=== PATIENT | female | born 1945 ===

== ENCOUNTER 2018-11-14 01:39 | Observation (INO) | payer MEDICARE, MEDICAID ==
[~2018-11-14] VITALS: Ht 154.9 cm; Wt 79.4 kg
[2018-11-14] VITALS (13 sets, daily range): BP systolic 114–143; BP diastolic 54–116
[~2018-11-14 01:39] MED LIST: CLOP75TA PO; GABA-549 PO; LEVO75TA73 PO; LISI5TAB25 PO; LOSA25TA57 PO; METF-450 PO; SIMV-49 PO; TRAM-420 PO
[2018-11-14] MEDS: NORMOSOL R SOLN(*) 1000 ML BAG 1,000 ML IV PRN ×2 (10:59→14:06)
[2018-11-14] MEDS ORDERED: BACITRACIN 50000 UNIT/VIAL 50,000 UNIT in NS 0.9% IRRIG(*) 1000ML PLCT 1,000 ML IR PRN (11:55)
[2018-11-14] MEDS ORDERED: ACETAMINOPHEN 500 MG TAB PO ONE (11:55)
[2018-11-14] MEDS ORDERED: FAMOTIDINE 20 MG TAB PO ONE (11:55)
[2018-11-14] MEDS ORDERED: LIDOCAINE/SOD BICARB 8.4% SYR ID ONE (11:55)
[2018-11-14] MEDS ORDERED: MIDAZOLAM 2 MG/2 ML VIAL IVP PRN (11:55)
[2018-11-14] MEDS ORDERED: ceFAZolin(*) 2GM/D5W 50ML 50 ML IVPB ONE (11:55)
[2018-11-14] MEDS ORDERED: BUPIVACAIN 0.25% INJ 50ML VIAL ONE (12:11)
[2018-11-14] MEDS ORDERED: DEXAMETHASONE SOD PHOS 10MG/ML ONE (12:11)
[2018-11-14] MEDS ORDERED: ROCURONIUM BROM 10 MG/ML 10 ML ONE (12:38)
[2018-11-14] MEDS ORDERED: PROPOFOL EMUL(*) 10MG/ML 20 ML 20 ML ONE (12:38)
[2018-11-14] MEDS ORDERED: fentaNYL CITR 100 MCG/2 ML AMP ONE ×3 (12:38→14:23)
[2018-11-14] MEDS ORDERED: ONDANSETRON 4 MG/2 ML VIAL ONE (12:38)
[2018-11-14] MEDS ORDERED: ROPIVACAINE 0.2% 20 ML VIAL ONE (13:34)
[2018-11-14] MEDS ORDERED: SUGAMMADEX SOD 500 MG/5 ML SDV ONE (13:40)
[2018-11-14] MEDS ORDERED: KETOROLAC 30 MG/ML VIAL ONE (14:15)
--- NOTE | 2018-11-14 14:26 | OPERATIVE REPORT 1 ---
EVENT DATE: November 14, 2018 SURGEON: Giovanni Rivers MD ANESTHESIOLOGIST: Kevin Sebastian MD ANESTHESIA: General endotracheal. MATCH MAKER: Kevin Hill PA-C PREOPERATIVE DIAGNOSIS Left L5 radiculopathy with left-sided L4, L5 herniated nucleus pulposus. POSTOPERATIVE DIAGNOSIS Left L5 radiculopathy with left-sided L4, L5 herniated nucleus pulposus. PROCEDURE PERFORMED Left L4, L5 laminoforaminotomy and micro discectomy. IV FLUIDS 800 cc. ESTIMATED BLOOD LOSS 60 cc. DRAINS None. SPECIMENS None IMPLANTS USED None. COMPLICATIONS None. DISPOSITION Post-anesthesia care unit. INDICATIONS FOR SURGERY Ms. Foy is a 73-year-old female who presented with radicular pain in an L5 distribution down the left leg. The symptoms did not improve with physical therapy, Medrol dose pack and injections. She had about one month of improvement with the injections, but symptoms then returned. Her physical examination was significant for a positive straight leg raising maneuver on the left, recreating symptoms in and L5 distribution. Muscle strength was decreased and tibialis anterior extensor hallucis longus and peroneals on that left side. X-rays and an MRI showed multilevel degenerative disc disease and at L4, L5 there was a superiorly extruded disc herniation coming from the L4, L5 level. Secondary to ongoing symptoms and failure of nonsurgical care, Ms. Foy was offered and elected to undergo L4, L5 laminoforaminotomy and discectomy. Prior to surgery, I explained in detail to the patient possible risks of surgery. These risks include bleeding, infection, damage to surrounding structures, nerve root injury, spinal fluid leak, persistent and/or worsening pain, need for further surgery, , blindness, sexual dysfunction, autonomic nervous system dysfunction, and other unforeseen medical and surgical complications. An understanding that in general, spinal surgery is more predictive at improving extremity discomfort than axial spine pain was stressed. DESCRIPTION OF PROCEDURE On the day of surgery, the patient was met in the preoperative hold area and all questions were answered. The operative site was identified and marked by myself. The patient was brought in good condition to the operating room and after succumbing to anesthesia, was positioned in the prone position on a Hernan table. All bony protuberances and soft tissues were well-padded in the standard fashion. Care was taken to maintain appropriate perfusion pressures during anesthesia. Preoperative antibiotics were administered according to the appropriate timing schedule. At the conclusion of the procedure, sponge and needle counts were correct x2. A final timeout was undertaken by members of the operating team to confirm correct patient, correct levels, and correct surgery. Prior to incision, a spinal needle was placed on the L4 spinous process and a lateral radiograph obtained to confirm its position. We then went ahead with a vertical incision about 1 inch long and dissected down to the posterior elements. The lumbodorsal fascia was incised on the left of the spinous processes and soft tissues were elevated off the posterior elements in a subperiosteal manner. We then placed a retractor at what we believed to be the L4, L5 inner space and obtained another x-ray that showed we were actually at L5, S1. We therefore shifted up one disc space, replaced our self-retaining retractor. A Hudson curette was used to undermine the inferior insertion of the ligamentum flavum from the superior aspect of the L5 lamina. This was carried out along the medial border of the facet as well. Once I entered the canal, I used a Shawn elevator to separate any dural adhesions from surrounding bone or soft tissue prior to use of the Kerrison punch. A #3 Kerrison rongeur was used to undercut the L4, L5 facet and also to widen out the laminoforaminotomy just a bit. We then looked more superiorly and identified the disc space itself. A D'Errico nerve root retractor was used to retractor the dura and the shoulder of the L5 nerve root away from the disc space. A 15-blade was used to incise the disc space and some small disc fragments were removed. I then explored the canal, sweeping and searching for any extruded or persistent disc fragments, or any persistent compression of the neural elements, and none was found. At that point, we elected to go ahead and finish up as there was no evidence of any further disc material in the canal, so we irrigated with copious sterile saline solution, obtained meticulous hemostasis and then closed the wound in layers using interrupted sutures for the deep fascia, inverted interrupted sutures for the subcutaneous tissue and a running subcuticular skin stitch. Sponge and needle counts were correct x2. Prior to closure, we did place 2 mg of Decadron around the L5 nerve root. POSTOPERATIVE CARE PLAN The patient will remain here in the recovery area until she meets discharge criteria. She will be discharged home with instructions to follow up in 2 weeks time for a wound check and examination. CLARENCE
[2018-11-14] MEDS ORDERED: LOR5/325 PO (15:03)
[2018-11-14] MEDS ORDERED: DIA5 PO (15:04)
[2018-11-14] MEDS ORDERED: DOCU240C84 PO (15:05)
[2018-11-14] MEDS ORDERED: APAP/HYDROCODONE 325/5 TAB ONE (15:07)
--- NOTE | 2018-11-14 15:24 | RADIOLOGY IMAGING REPORT ---
FAC[place] [facility] [place]IENT NAME: Rachel Foy : 1945 MR: [id number] V: [id number] EXAM DATE: ORDERING PHYSICIAN: ALEXIA KERN TECHNOLOGIST: Location: [facility] - [place] Patient: Rachel Foy : 1945 Visit/Account:[id number] Date of Sevice: 11/14/2018 Lumbar spine Indication: L4-5 laminoforaminotomy Comparison: None available FINDINGS: 2 views of the lumbar spine were obtained. 2 lateral views of the lumbar spine demonstrating surgical hardware posterior to the L4-L5 vertebral bodies. Mild/moderate degenerative space loss at L4-L5. Mild additional multilevel joint space loss. Mild/moderate atherosclerosis within the abdominal aorta. IMPRESSION: 1. Surgical hardware posterior to L4-L5. Report Dictated By: Lasha Gonzalez MD at 11/14/2018 3:16 PM Report E-Signed By: Lasha Gonzalez MD at 11/14/2018 3:18 PM WSN:[id number]
[2018-11-14] MEDS ORDERED: MORPHINE 2 MG/ML SYR IVP PRN (16:10)
[2018-11-14] MEDS ORDERED: ONDANSETRON 4 MG/2 ML VIAL IVP PRN (16:10)
[2018-11-14] MEDS: APAP/HYDROCODONE 325/5 TAB PO PRN (21:26)
--- NOTE | 2018-11-14 22:01 | Hospitalist Consultation ---
History of Present Illness Requesting Physician Dr Plascencia Reason for Consult management of medical comorbidities. Chief Complaint radiculopathy History of Present Illness 73F with radiculopathy admitted after laminectomy. PMHx significant for hypothyroidism, HTN, chronic pain. Underwent L4-5 laminectomy and microdiscectomy. No reported complications. Admitted for observation as previous experience with general anesthesia was prolonged hypoxia. History Problems: (1) Hypothyroid (2) HTN (hypertension) (3) S/P laminectomy Home Meds Reported Medications Docusate Calcium (SURFAK) 240 Mg Capsule, 240 MG PO QDAY for 9 Days, #9 CAPSULE 0 Refills 11/14/18 Diazepam (VALIUM) 5 Mg Tablet, 5 MG PO Q8H PRN for SPASMS, #16 TAB 0 Refills 11/14/18 Hydrocodone Bit/Acetaminophen (HYDROCODON-ACETAMINOPHEN 5-325) 1 Each Tablet, 1- 2 EACH PO Q6H PRN for PAIN, #36 TAB 0 Refills 11/14/18 Tramadol Hcl (TRAMADOL HCL) 50 Mg Tablet, 50-100 MG PO Q6H PRN for PAIN, TAB 11/13/18 Gabapentin (GABAPENTIN) 300 Mg Capsule, 300 MG PO TID, CAPSULE 11/13/18 Levothyroxine Sodium (LEVOTHYROXINE SODIUM) 75 Mcg Tablet, 75 MCG PO QDAY, TAB 11/13/18 Clopidogrel Bisulfate (CLOPIDOGREL) 75 Mg Tablet, 1 TAB PO QDAY, TAB 11/13/18 Losartan Potassium (LOSARTAN POTASSIUM) 25 Mg Tablet, 25 MG PO QDAY 11/13/18 Lisinopril (LISINOPRIL) 5 Mg Tablet, 5 MG PO QDAY, TAB 11/13/18 Simvastatin (SIMVASTATIN) 20 Mg Tablet, 10 MG PO HS, TAB 11/13/18 Metformin Hcl (METFORMIN HCL) 500 Mg Tablet, 1 TAB PO TID, TAB 11/13/18 Allergies: Coded Allergies: No Known Drug Allergies (Unverified , 11/13/18) Patient History: FH: heart disease FATHER, MOTHER, Hx Smoking: No Smoking Status: Never Smoker Caffeine/Cups Per Day: NONE Hx Alcohol Use: No Hx Substance Use Disorder: No Social Drug Use: Never History of IV Drug Use: No Review of Systems All Systems Reviewed/Normal: Yes, Except as Noted Constitutional: No Fever Respiratory: No Shortness of Breath Gastrointestinal: No Nausea, No Vomiting Exam Vital Signs Vital Signs Date Time Temp Pulse Resp B/P (MAP) Pulse Ox O2 Delivery O2 Flow Rate FiO2 11/14/18 19:25 98.1 56 16 130/60 (83) 95 Nasal Cannula 2.0 General Appearance: Alert, Awake, No Acute Distress Neuro: No Gross deficits Cardiovascular: Normal Rhythm & Peripheral Pulses Respiratory: No Respiratory Distress GI: Abd Soft and Non-Tender Extremities: Soft and Non Tender, Warm, Pulses, Perfused Assessment and Plan Problems: (1) HTN (hypertension) Assessment & Plan: Continue chronic Losartan. (2) Hypothyroid Assessment & Plan: Continue chronic 0.075mg levothyroxine. (3) S/P laminectomy Assessment & Plan: Per primary Venous Thromboembolism Antithrombotics Is Pt On Any Antithrombotics?: No Exam Sepsis Risk: No Definite Risk DUNG CABRERA DO Nov 14, 2018 22:01
[2018-11-15 03:14] VITALS: BP 107/45
[2018-11-15] MEDS ORDERED: LEVOTHYROXINE SOD 0.075 MG TAB PO SCH (06:00)
[2018-11-15 06:51] VITALS: BP 124/62
[2018-11-15] MEDS ORDERED: LOSARTAN POTASSIUM 50 MG TAB PO SCH (09:00)
[2018-11-15] MEDS: GABAPENTIN 300 MG CAP PO SCH ×2 (09:17→14:24)
[2018-11-15] MEDS: APAP/HYDROCODONE 325/5 TAB PO PRN (09:19)
--- NOTE | 2018-11-15 09:50 | NUR ---
Physical Therapy Impression PT Saad and d/c completed with goals met during initial visit. Pt demos good understanding of log roll technique, as well as excellenet tolerance for distance ambulation with FWW and transfers. Physical Therapy Goals mobility goals met with initial visit; no further visits planned. Patient's Goals
--- NOTE | 2018-11-15 11:19 | Hospitalist Progress Note ---
Subjective Progress Notes Subjective She was admitted s/p surgery. She had no acute events overnight. Patient Complains of: Cardiovascular: No: Chest Pain Respiratory: No: Shortness of Breath Physical Exam Vital Signs Date Time Temp Pulse Resp B/P (MAP) Pulse Ox O2 Delivery O2 Flow Rate FiO2 11/15/18 07:09 Nasal Cannula 0.5 11/15/18 06:51 98.3 48 16 124/62 (82) 96 Intake and Output 11/15/18 06:59 Intake Total 2100 ml Balance 2100 ml Intake Oral 100 ml IV Total 2000 ml # Voids 4 General Appearance: Alert, Awake, No Acute Distress, Afebrile Neuro: No Gross deficits Cardiovascular: Regular Rate and Rhythm Respiratory: No Respiratory Distress, Clear to Auscultation GI: Soft and Non-Tender Psych: Alert & Oriented X3, Appropriate Mood & Affect Assessment and Plan Problems: (1) S/P laminectomy Assessment & Plan: Per primary (2) HTN (hypertension) Assessment & Plan: Continue chronic Losartan. (3) Hypothyroid Assessment & Plan: Continue chronic 0.075mg levothyroxine. Exam Sepsis Risk: No Definite Risk CAROLEE GROSS TITLE I MATH TUTOR Nov 15, 2018 11:19
--- NOTE | 2018-11-15 13:55 | Medical Nutrition Therapy ---
Nutrition Anthropometrics Height (Inches): 61.00 Height (Calculated Centimeters: 154.517135 Weight (Pounds): 175 Weight (Calculated Kilograms): 79.379 BMI: 33.1 Inder Nutrition Score: Adequate Inder Nutrition Risk Score: 18 Dietary Referral Nutrition Risk Factors: Nutrition Risk Comment: Physical Findings Physical Appearance: Obese BMI 30-39 Skin Appearance Skin Appearance: Edema Edema Location Modifier: Edema Location: Type of Edema: Degree of Edema: Gastrointestinal Symptoms GI Symtoms: Tube Present: Bowel Sounds: Recent Bowel Pattern: Stool Characteristics: Nutrition/Food History Good Dinner: Salad Nutritional Diagnosis Nutritional Risk Acuity 4: Good Appetite Past Medical History: Hypothyroid,HTN, s/p laminectomy Nutritional Acuity: 4-Low Energy Requirement: 1563 Protein Requirement: 80 (1g/kg) Fluid Requirement: 1563 (1mL/cayden) Diet Type: Diet as Tolerated NIGEL/REG Nutrition Intervention: Teaching Nutritional Education Nutrition Education Topic: Low Na Diet Learning Readiness: Eager Teaching Methods: Discussion, Handout Response to Teaching: Verbalize understanding Teaching Recipient: Patient Nutrition Counseling: Pt has HTN recommended low sodium diet. Pt also expressed desire to lose weight. Reviewed foods low in sodium and provided handout on weight loss. Discussed emphasizing fruits and vegetables, low calorie nutritient dense foods. Nutrition Monitoring & Eval RD Patient Assessment Time: [address] Assessment Type: RD Assessment Patient Nutrition Acuity: 4-Low Follow Up Date: Nov 22, 2018 Nutritional Comment: 11/15/18Reviewed pt medical history. Provided nutriton education inpatient for low sodium diet and weight loss.RICO WADDELL Nov 15, 2018 13:55
[2018-11-15] MEDS ORDERED: SIMVASTATIN 20 MG TAB PO SCH (21:00)
== END 2018-11-15 07:14 | disposition home or self-care (01) ==
LOC: OR 01:39 → INTOOBSV 16:35 → MED 16:35
PROVIDERS: ADMIT Orthopaedic Surgery; ATTEND Orthopaedic Surgery
DX: M51.16 Intervertebral disc disorders with radiculopathy, lumbar region (principal); I10 Essential (primary) hypertension; E11.9 Type 2 diabetes mellitus without complications
CPT/HCPCS: 36416; 63030; 72020; 82948; 97116; 97161; A9270; G0378; J1100; J1885; J2250; J2405; J2704; J2795; J3010; J3490